=== PATIENT | female | born 1935 | race Caucasian/White ===

== ENCOUNTER 2017-03-28 11:09 | Emergency (ER) | payer MEDICARE ==
[2012-01-16 14:33] VITALS: BMI 43.8
--- NOTE | ~2017-03-28 | CN ---
PATIENT NAME:KRISTAL ROSA MEDICAL RECORD: [id number] : 31 LOCATION:.ER ADMIT DATE: ACCOUNT: [id number] CONSULTING PHYSICIAN: ES MCGEE MD REFERRING PHYSICIAN: PUJA AREVALO MD DATE OF CONSULTATION: 03/28/2017 Cardiology Consultation DIAGNOSES: 1. New onset atrial fibrillation. 2. Pancreatic cancer. 3. Hypertension. HISTORY OF PRESENT ILLNESS: Mrs. Rosa has noticed an irregular heartbeat for over a week now. She presents to the Emergency Room as it has gotten more rapid, as she is in atrial fibrillation. She is undergoing chemotherapy treatment at [facility] for pancreatic cancer. She has not been told she has atrial fibrillation in the past. She has hypertension for which she is on ramipril. PHYSICAL EXAMINATION: GENERAL APPEARANCE: Well-nourished, well-developed, appears stated age. Level of distress, comfortable. PSYCHIATRIC: Mental status, alert, normal affect. Orientation, oriented to time, place and person. EYES: Lids and conjunctiva, noninjected. No discharge, no pallor. ENT: Lips, teeth, gums, normal dentition. Oropharynx, no cyanosis, no pallor. NECK: Carotid arteries, bilateral normal upstroke, no bruits, no thrills. JUGULAR VEINS: No jugular venous pressure or distention. CERVICAL LYMPH NODES: Nontender, nonenlarged. THYROID: Not enlarged. Nontender. No nodules. LUNGS: Respiratory effort, unlabored. CHEST: Normal curvature. No thoracic deformity. No chest wall tenderness. Percussion, resonant. Auscultation, clear. No wheezes, no rales, no rhonchi. CARDIOVASCULAR: Heart is irregularly irregular with atrial fibrillation. EXTREMITIES: No cyanosis, no edema. Peripheral pulses, full and equal in all extremities, except as noted. No bruits appreciated. ABDOMEN: Soft, nondistended. Normal aorta. No bruit. Nontender. No masses. Liver, nontender, no hepatomegaly. Spleen, nontender, no splenomegaly. MUSCULOSKELETAL: No joint tenderness. No joint swelling. No erythema. NEUROLOGICAL: Normal gait, normal strength, normal tone. SKIN: Warm and dry. OVERALL IMPRESSION: Atrial fibrillation, unknown duration, we will stop her ramipril, put her on sotalol 80 mg b.i.d., as well put her on Xarelto. We will see her next week in the office to see if she converts to sinus rhythm and is rate controlled. TRANSINT:[id number] Voice Confirmation ID: [id number] DOCUMENT ID: [id number] CONSULT REPORT [id number] KRISTAL ROSA JEFFREY MD CC: [id number] DICTATION DATE: 03/28/171454 MANAGER OF [facility]: 03/28/17 [id number] [place] [address]
[2017-03-28 11:44] LABS: BASOPHILS 0.2 % (0-2); EOSINOPHILS 4.6 % (0-7); HEMATOCRIT 33.3 % (36.0-48.0); HEMOGLOBIN 10.6 g/dL (12-16); IMMATURE GRANULOCYTES 0.2 % (0-5); LYMPHOCYTES 10.7 % (15-50); MCH 31.3 pg (26.0-34.0); MCHC 31.8 g/dL (31.0-37.0); MCV 98.2 fL (80.0-100.0); MEAN PLATELET VOLUME 9.4 fL (7.4-10.4); MONOCYTES 16.7 % (2-11); NEUTROPHILS 67.6 % (40-80); RBC 3.39 10x6/uL (4.00-5.40); RDW 19.3 % (11.5-14.5); WBC 6.3 10x3/uL (4.8-10.8)
[2017-03-28 11:46] LABS: PLATELET COUNT 122 10x3/uL (130-400)
[2017-03-28 12:01] LABS: ALBUMIN 2.6 g/dL (3.4-5.0); ANION GAP 12.6 mmol/L (8-16); BILIRUBIN - TOTAL 0.77 mg/dL (0.2-1.3); CALCIUM 8.2 mg/dL (8.5-10.1); CREATININE - SERUM 0.8 mg/dL (0.6-1.3); POTASSIUM - SERUM 3.6 mmol/L (3.5-5.1); PROTEIN - SERUM 5.7 g/dL (6.4-8.2)
[2017-03-28 12:18] LABS: APTT 28.2 SECONDS (22.8-39.4); INR 1.29 (0.85-1.17)
[2017-03-28 12:19] LABS: D-DIMER-QUANTITATIVE 2.54 ug/mLFEU (0.20-0.54)
[2017-03-28 12:33] LABS: CKMB 0.3 U/L (0.0-3.6); CREATINE KINASE 32 UL (21-215); MAGNESIUM - SERUM 1.6 mg/dL (1.8-2.4)
[2017-03-28 12:34] LABS: TROPONIN-I < 0.017 ng/mL (0.000-0.060)
== END 2017-03-28 16:42 | disposition home or self-care (01) ==
LOC: D.ER 11:09
PROVIDERS: Family Medicine
DX: I48.91 Unspecified atrial fibrillation (principal); I10 Essential (primary) hypertension; Z85.07 Personal history of malignant neoplasm of pancreas; R00.0 Tachycardia, unspecified